=== PATIENT | female | born 2000 | race Caucasian/White ===

== ENCOUNTER 2019-03-03 20:56 | Emergency (ER) | payer OTHER, BC ==
[~2019-03-03] VITALS: Ht 165 cm; Wt 79.0 kg
[~2019-03-03 20:56] MED LIST: BIRTH CONTROL PILL PO; FLUC150T2 PO; [UNRECOGNIZED DRUG - REMARK]
[2019-03-03] MEDS ORDERED: TETANUS,DIPTH,PERTUSS P/F (BOOSTRIX) 0.5 ML VIAL IM ONE (21:30)
[2019-03-03 21:55] VITALS: BP 132/90
--- NOTE | 2019-03-03 21:55 | ED Integumentary General ---
General Chief Complaint: Laceration Stated Complaint: FOREHEAD LAC Nursing Triage Note: forehead laceration History of Present Illness Date Seen by Provider: Mar 03, 2019 Time Seen by Provider: 21:20 Initial Comments 18-year-old female presents for laceration to her forehead. She states that she was going to sit down in the chair, it was lower than she believed to be, she hit her head on the desk. She is unsure of her last tetanus vaccination. No other injuries at this time. She denies any headache, nausea or vomiting, altered mental status or vision changes. Timing/Duration: just prior to arrival Location: face Associated Symptoms: denies symptoms Allergies and Home Medications Allergies Coded Allergies: No Known Drug Allergies (Unverified , 01/04/15) Home Medications [?Allergy Med] , DAILY, (Reported) [ Control Pill] , 1 TAB PO DAILY, (Reported) Patient Home Medication List Home Medication List Reviewed: Yes Review of Systems Review of Systems Constitutional: no symptoms reported, see HPI Skin: see HPI, other (laceration to forehead) All Other Systems Reviewed Negative Unless Noted: Yes Past Tnaduxg-Mmmhzc-Ihkiks Hx Past Med/Social Hx: Reviewed Nursing Past Med/Soc Hx Patient Social History Alcohol Use: Rarely Uses Recreational Drug Use: No Smoking Status: Never a Smoker 2nd Hand Smoke Exposure: No Recent Foreign Travel: No Contact w/Someone Who Travel: No Recent Infectious Disease Expo: No Recent Hopitalizations: No Physical Abuse: No Sexual Abuse: No Mistreated: No Fear: No Immunizations Up To Date Tetanus Booster (TDap): Less than 5yrs PED Vaccines UTD: Yes Seasonal Allergies Seasonal Allergies: No Past Medical History Surgeries: Yes (l acl) Orthopedic Respiratory: No Cardiac: No Neurological: No : No (implanted bc) Reproductive Disorders: No Genitourinary: No Gastrointestinal: No Musculoskeletal: No Endocrine: No HEENT: No Cancer: No Psychosocial: No Integumentary: No Blood Disorders: No Physical Exam Vital Signs Vital Signs - First Documented 03/03/19 21:10 Temp 37.1 Pulse 87 Resp 16 B/P (MAP) 132/90 (104) Pulse Ox 99 O2 Delivery Room Air Capillary Refill : Less Than 3 Seconds General Appearance: WD/WN, no apparent distress HEENT: PERRL/EOMI, normal ENT inspection Neck: non-tender, full range of motion, supple, normal inspection Cardiovascular: normal peripheral pulses, regular rate, rhythm Respiratory: chest non-tender, lungs clear Neurologic/Psychiatric: no motor/sensory deficits, alert, normal mood/affect, oriented x 3 Skin: normal color, warm/dry Skin Problem Location: face (for head) Skin Problem Character: other (1.5 cm laceration in the center for headache, no active bleeding. Trace swelling, no ecchymosis.) Procedures/Interventions Wound Location: Face Wound Length (cm): 1.5 Wound's Depth, Shape: superficial Other Closure Supply: Wound Adhesive Progress Wound well approximated with skin adhesive, patient tolerated procedure well. Progress/Results/Core Measures Results/Orders My Orders Orders - NAGA LEVY Dipht,Pertuss(Acell),Tet Adult (Boostrix (03/03/19 21:30) Medications Given in ED Current Medications Medications Dose Ordered Sig/Richie Route Start Time Stop Time Status Last Admin Dose Admin Diphtheria/ Tetanus/Acell Pertussis 0.5 ml ONCE ONCE IM 03/03/19 21:30 03/03/19 21:31 DC 03/03/19 21:51 0.5 ML Vital Signs/I&O 03/03/19 03/03/19 21:10 21:55 Temp 37.1 37.1 Pulse 87 87 Resp 16 16 B/P (MAP) 132/90 (104) 132/90 (104) Pulse Ox 99 99 O2 Delivery Room Air Blood Pressure Mean: 104 Departure Impression Primary Impression: Laceration of forehead Qualified Codes: S01.81XA - Laceration without foreign body of other part of head, initial encounter Disposition: 01 HOME, SELF-CARE Condition: Improved Departure-Patient Inst. Decision time for Depature: 21:45 Referrals: JANUSZ OLMEDO MD (PCP/Family) Primary Care Physician Patient Instructions: Laceration Repair With Glue (DC) Add. Discharge Instructions: Keep wound clean and dry, for the next 24 hours. Then you may shower and wash face, as normal. Do not apply any petroleum based ointment to the glue area. Do not pick or remove the glue, and will follow off on its own. Watch for signs of infection: Redness, discolored drainage, increased pain, fever greater than 101. Tylenol 650 mg every 6-8 hours as needed for pain or headache. Return to the emergency department or your primary care provider if symptoms are not improving or worsen. All discharge instructions reviewed with patient and/or family. Voiced understanding. NAGA LEVY Mar 03, 2019 21:55
== END 2019-03-03 21:57 | disposition home or self-care (01) ==
LOC: EDUNIT# 20:56 → ER 20:57
DX: S01.81XA Laceration without foreign body of other part of head, initial encounter (principal); Z23 Encounter for immunization; W22.8XXA Striking against or struck by other objects, initial encounter
CPT/HCPCS: 12011; 90471; 90715

== ENCOUNTER 2020-12-14 17:16 | Emergency (ER) | payer BC ==
[~2020-12-14] VITALS: Ht 165 cm; Wt 74.0 kg
--- NOTE | 2020-12-14 18:01 | ED Cardiac General ---
History of Present Illness General Chief Complaint: General Problems/Pain Stated Complaint: FATIGUE,HIGH HR,SOB, Nursing Triage Note: PT ARRIVES TO ER WITH C/O INCREASED HEART RATE AND VERY FATIGUED. 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 Patient states when exercising she gets extremely fatigued and notes heart rates on her watch to the 200 range. She feels a little short of breath. She denies any current fevers chills, productive cough or Covid concerns otherwise. No burning with urination or GI complaints. No abnormal vaginal discharge. Patient states she is not sex ually active but she is also not on control. 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 No recreational drugs, daily alcohol or smoking. Maternal family history is negative, unknown paternal family history as she is adopted. All other review of systems reviewed and negative except as stated. Timing/Duration: other (2-3 weeks) Severity: moderate Activities at Onset: activity Prior CP/Workup: other (chest "discomfort") Modifying Factors: improves with other (excerise) NTG SL RETAIL BANKER: No ASA po RETAIL BANKER: No Associated Systoms: Malaise, Shortness of Air (PEGGY GONSALES MD) Allergies and Home Medications Allergies Coded Allergies: No Known Drug Allergies (Unverified , 01/04/15) Patient Home Medication List Home Medication List Reviewed: Yes (PEGGY GONSALES MD) [?Allergy Med] , DAILY, (Reported) Entered as Reported by: LISANDRO CLARK on 01/04/151903 [ Control Pill] , 1 TAB PO DAILY, (Reported) Entered as Reported by: CARMEN FREDERICK on 04/02/14 1402 Review of Systems Review of Systems Constitutional: see HPI EENTM: No Symptoms Reported Respiratory: SOA With Exertion Cardiovascular: Palpitations Gastrointestinal: No Symptoms Reported Genitourinary: No Symptoms Reported Musculoskeletal: no symptoms reported Skin: no symptoms reported Psychiatric/Neurological: No Symptoms Reported Endocrine: No Symptoms Reported (PEGGY GONSALES MD) All Other Systems Reviewed Negative Unless Noted: Yes (PEGGY GONSALES MD) Past Jmiohqq-Yrfmmi-Lbikmu Hx Patient Social History Tobacco Use?: No Substance use?: No Alcohol Use?: Yes Alcohol type: Beer Alcohol Frequency: Rarely Pt feels they are or have been: No (PEGGY GONSALES MD) Immunizations Up To Date Tetanus Booster (TDap): Less than 5yrs PED Vaccines UTD: Yes Influenza Vaccine Up-to-Date: No; Not Current First/Initial COVID19 Vaccinat: OCT 25 Second COVID19 Vaccination Don: NOV 25 COVID19 Vaccine Creative Services Coordinator: MOD[employer]a (PEGGY GONSALES MD) Seasonal Allergies Seasonal Allergies: No (PEGGY GONSALES MD) Past Medical History Surgeries: Yes (l acl) Orthopedic Respiratory: No Cardiac: No Neurological: No Last Menstrual Period: Nov 30, 2020 Reproductive Disorders: No Genitourinary: No Gastrointestinal: No Musculoskeletal: No Endocrine: No HEENT: No Cancer: No Psychosocial: No Integumentary: No Blood Disorders: No (PEGGY GONSALES MD) Physical Exam Vital Signs Vital Signs - First Documented 12/14/20 17:42 Temp 36.6 Pulse 61 Resp 18 B/P (MAP) 89/ O2 Flow Rate 127.00 (ROBYN LI) Vital Signs Capillary Refill : Less Than 3 Seconds (PEGGY GONSALES MD) Height, Weight, BMI Height: 5'5" Weight: 160lbs. 4oz. [id number]; 27.00 BMI Method:Stated General Appearance: No Apparent Distress, WD/WN HEENT: PERRL/EOMI Neck: Full Range of Motion, Normal Inspection, Non Tender, Supple Respiratory: Lungs Clear, Normal Breath Sounds, No Accessory Muscle Use, No Respiratory Distress Cardiovascular: Regular Rate, Rhythm, Normal Peripheral Pulses Gastrointestinal: Non Tender, Soft Extremity: Normal Inspection, Normal Range of Motion, Non Tender, No Calf Tenderness, No Pedal Edema Neurologic/Psychiatric: Alert, Oriented x3, No Motor/Sensory Deficits, Normal Mood/Affect Skin: Normal Color, Warm/Dry (PEGGY GONSALES MD) Progress/Results/Core Measures Results/Orders Lab Results Laboratory Tests Test 12/14/20 17:45 12/14/20 18:35 Range/Units White Blood Count 6.0 4.3-11.0 10^3/uL Red Blood Count 4.22 3.80-5.11 10^6/uL Hemoglobin 12.8 11.5-16.0 g/dL Hematocrit 38 35-52 % Mean Corpuscular Volume 91 80-99 fL Mean Corpuscular Hemoglobin 30 25-34 pg Mean Corpuscular Hemoglobin Concent 34 32-36 g/dL Red Cell Distribution Width 12.3 10.0-14.5 % Platelet Count 258 130-400 10^3/uL Mean Platelet Volume 11.0 9.0-12.2 fL Immature Granulocyte % (Auto) 0 % Neutrophils (%) (Auto) 62 42-75 % Lymphocytes (%) (Auto) 29 12-44 % Monocytes (%) (Auto) 8 0-12 % Eosinophils (%) (Auto) 1 0-10 % Basophils (%) (Auto) 1 0-10 % Neutrophils # (Auto) 3.7 1.8-7.8 10^3/uL Lymphocytes # (Auto) 1.7 1.0-4.0 10^3/uL Monocytes # (Auto) 0.5 0.0-1.0 10^3/uL Eosinophils # (Auto) 0.0 0.0-0.3 10^3/uL Basophils # (Auto) 0.0 0.0-0.1 10^3/uL Immature Granulocyte # (Auto) 0.0 0.0-0.1 10^3/uL Sodium Level 139 135-145 MMOL/L Potassium Level 4.2 3.6-5.0 MMOL/L Chloride Level 107 98-107 MMOL/L Carbon Dioxide Level 21 21-32 MMOL/L Anion Gap 11 5-14 MMOL/L Blood Urea Nitrogen 14 7-18 MG/DL Creatinine 0.76 0.60-1.30 MG/DL Estimat Glomerular Filtration Rate 95 BUN/Creatinine Ratio 18 Glucose Level 83 70-105 MG/DL Calcium Level 9.6 8.5-10.1 MG/DL Total Creatine Kinase 273 H 29-168 U/L Troponin I < 0.028 <0.028 NG/ML Urine Test NEGATIVE NEGATIVE (ROBYN LI) Vital Signs/I&O 12/14/20 17:42 Temp 36.6 Pulse 61 Resp 18 B/P (MAP) 89/ O2 Flow Rate 127.00 (ROBYN LI) Progress Progress Note : Time: 18:17 Progress Note Assumed care of the patient at shift change. I agree with the above documented history and physical exam as well as plan to obtain some labs. The patient is not demonstrating any tachyarrhythmia/dysrhythmias at this time. We will keep her on the monitor and if her lab work is unrevealing of significant pathology then we will have her follow-up with Dr. Omledo for continued outpatient work-up. (ROBYN LI) Initial ECG Impression Date: Dec 14, 2020 Initial ECG Impression Time: 17:59 Initial ECG Rate: 62 Initial ECG Rhythm: Normal Sinus Initial ECG Intervals: Normal Initial ECG Impression: Normal (PEGGY GONSALES MD) Diagnostic Imaging Diagonstic Imaging: Xray Plain Films/CT/US/NM/MRI: chest Comments No acute cardiopulmonary process on 1 view chest x-ray [facility], [place] NAME: PRE[facility] REC#: [id number] PT STATUS: REG ER : 2000 PHYSICIAN: PEGGY GONSALES MD ADMIT DATE: 12/14/20/ER Signed Date of Exam:12/14/20 CHEST 1 VIEW, AP/PA ONLY INDICATION: Shortness of breath, fatigue and heart palpitations. FINDINGS: The heart size, mediastinal configuration, and pulmonary vascularity are within normal limits. There is no pleural effusion, pneumothorax, or pneumonia. The osseous structures are unremarkable. IMPRESSION: No acute cardiopulmonary abnormality. Dictated by: Dictated on workstation # [id number] Dict: 12/14/201921 Trans: 12/14/201924 PJ [id number] Interpreted by: MARITZA MEDRANO MD Electronically signed by: MARITZA MEDRANO MD 12/14/201924 Reviewed: Reviewed by Me (ROBYN LI) Departure Impression Primary Impression: Palpitations Disposition: 01 HOME, SELF-CARE Condition: Stable Departure-Patient Inst. Decision time for Depature: 19:14 (ROBYN LI) Referrals: JANUSZ OLMEDO MD (PCP/Family) Primary Care Physician Patient Instructions: Palpitations (DC) Add. Discharge Instructions: You need to follow-up with Dr. Olmedo to discuss further work-up including poss ibly further labs, a Holter monitor, etc. to discover why you are having these episodes. Call him Wednesday morning for an appointment. Return to the ER promptly for intractable chest pain, shortness of air or other worrisome symptoms. Alternatively you may follow-up with a unit leader, Dr. Iqbal by calling him Wednesday morning for an appointment to work-up your symptoms. Avoid caffeinated drinks until cleared by your doctor. Avoid medications such as decongestants, pseudoephedrine, albuterol or other medications that may increase your heart rate artificially until cleared by your doctor. All discharge instructions reviewed with patient and/or family. Voiced understanding. Work/School Note: School/Childcare Release Date Seen in the Emergency Department: Dec 14, 2020 Time Dismissed from Emergency Department: 19:17 Return to School: Dec 16, 2020 Restrictions: No Sports-Until Released PEGGY GONSALES MD Dec 14, 2020 18:01 ROBYN LI Dec 14, 2020 18:18
[2020-12-14 18:39] LABS: BASOPHILS % (AUTO) 1 % (0-10); EOSINOPHILS % (AUTO) 1 % (0-10); HEMATOCRIT 38 % (35-52); HEMOGLOBIN 12.8 g/dL (11.5-16.0); LYMPHOCYTES # (AUTO) 1.7 10^3/uL (1.0-4.0); LYMPHOCYTES % (AUTO) 29 % (12-44); MEAN CORPUSCULAR HEMOGLOBIN 30 pg (25-34); MEAN CORPUSCULAR HGB CONC 34 g/dL (32-36); MEAN CORPUSCULAR VOLUME 91 fL (80-99); MONOCYTES # (AUTO) 0.5 10^3/uL (0.0-1.0); MONOCYTES % (AUTO) 8 % (0-12); NEUTROPHILS # (AUTO) 3.7 10^3/uL (1.8-7.8); NEUTROPHILS % (AUTO) 62 % (42-75); PLATELET COUNT 258 10^3/uL (130-400)
[2020-12-14 18:55] LABS: CHLORIDE 107 MMOL/L (98-107); POTASSIUM 4.2 MMOL/L (3.6-5.0); SODIUM 139 MMOL/L (135-145)
[2020-12-14 18:56] LABS: CALCIUM 9.6 MG/DL (8.5-10.1); GLUCOSE 83 MG/DL (70-105)
[2020-12-14 18:58] LABS: CARBON DIOXIDE 21 MMOL/L (21-32)
[2020-12-14 19:00] LABS: CREATININE SERUM 0.76 MG/DL (0.60-1.30); GFR ESTIMATED 95
[2020-12-14 19:01] LABS: BUN/CREATININE RATIO 18
[2020-12-14 19:03] LABS: CREATINE KINASE 273 U/L (29-168)
--- NOTE | 2020-12-14 19:23 | Diagnostic Imaging Report ---
INDICATION: Shortness of breath, fatigue and heart palpitations. FINDINGS: The heart size, mediastinal configuration, and pulmonary vascularity are within normal limits. There is no pleural effusion, pneumothorax, or pneumonia. The osseous structures are unremarkable. IMPRESSION: No acute cardiopulmonary abnormality. Dictated by: Dictated on workstation # [id number]
[2020-12-14 19:45] VITALS: BP 116/79
== END 2020-12-14 19:45 | disposition home or self-care (01) ==
LOC: EDUNIT# 17:16 → ER 17:17
DX: R00.2 Palpitations (principal)
CPT/HCPCS: 36415; 71045; 80048; 82550; 84484; 84703; 85025; 93005